=== PATIENT | male | born 1955 | race Caucasian/White ===

== ENCOUNTER → 2017-01-18 | Outpatient (CLI) | payer BC | LOC: RAD 13:49 | PROVIDERS: ATTEND Internal Medicine | DX: J44.9 Chronic obstructive pulmonary disease, unspecified (principal) | CPT/HCPCS: 71250 ==

== ENCOUNTER → 2017-04-23 | Outpatient (CLI) | payer BC ==
--- NOTE | 2017-04-23 12:10 | RADIOLOGY REPORT (SQ) ---
EXAM DESCRIPTION: MRI CERVICAL SPINE WITHOUT COMPLETED DATE/TIME: 04/23/2017 11:13 am REASON FOR STUDY: RADICULOPATHY,CERVICAL REGION M54.12 RADICULOPATHY, CERVICAL REGION M54.17 RADIC ULOPATHY, LUMBOSACRAL REGION COMPARISON: None. TECHNIQUE: Sagittal and Axial imaging includes T1, T2, STIR and gradient echo sequences. LIMITATIONS: None. FINDINGS: ALIGNMENT: Normal. VERTEBRAE: Intact. BONE MARROW: Normal. No marrow replacement or reactive changes. DISCS: Normal. No significant abnormal signal or loss of height. HARDWARE: None in the spine. CORD AND BASE OF BRAIN: Normal in size and signal intensity. SOFT TISSUES: No soft tissue masses. C1-C2: No significant spinal stenosis. C2-C3: No significant spinal stenosis or exit foraminal stenosis. C3-C4: Uncovertebral spurring and facet arthropathy on the left side resulting in severe left exit fo raminal stenosis. No significant spinal stenosis. C4-C5: Minimal posterior disc and osteophyte. Slightly asymmetric to the left side. Facet arthropat hy. No significant spinal stenosis or exit foraminal stenosis. C5-C6: Posterior disc and osteophyte, asymmetric to the right side. Uncovertebral spurring and facet arthropathy. No significant spinal stenosis. Moderate to severe left exit foraminal stenosis and s evere right exit foraminal stenosis. C6-C7: Minimal posterior disc and osteophyte. Uncovertebral spurring and facet arthropathy. No sign ificant spinal stenosis. Mild -moderate exit foraminal stenosis. C7-T1: No significant spinal stenosis or exit foraminal stenosis. UPPER THORACIC: Incompletely imaged. No significant spinal stenosis or exit foraminal stenosis. OTHER: No other significant finding. IMPRESSION: MULTILEVEL CHRONIC DEGENERATIVE CHANGES DESCRIBED ABOVE. EXIT FORAMINAL STENOSIS AT SEVERAL LEVELS. NO SIGNIFICANT SPINAL STENOSIS. TECHNICAL DOCUMENTATION: JOB ID: [id number]- All Rights Reserved
--- NOTE | 2017-04-23 12:17 | RADIOLOGY REPORT (SQ) ---
EXAM DESCRIPTION: MRI LUMBAR SPINE WITHOUT COMPLETED DATE/TIME: 04/23/2017 11:14 am REASON FOR STUDY: RADICULOPATHY,LUMBAR REGION M54.12 RADICULOPATHY, CERVICAL REGION M54.17 RADICUL OPATHY, LUMBOSACRAL REGION COMPARISON: None. TECHNIQUE: Sagittal and Axial imaging includes T1, T2, STIR and gradient echo sequences. Coronal T2/ HASTE imaging. LIMITATIONS: None. FINDINGS: VISUALIZED UPPER ABDOMEN: Limited evaluation. No acute or suspicious findings suggested. SEGMENTATION: No transitional anatomy. The lowest well-developed disc space is labeled L5-S1. ALIGNMENT: Anatomic. VERTEBRAE: The lumbar vertebrae are intact. There is mild anterior wedging of the T11 vertebral body . BONE MARROW: Normal. No marrow replacement or reactive changes. Incidental vertebral body hemangioma in L3. DISC SIGNAL: Decreased height and signal. POSTERIOR ELEMENTS: Generally intact. No pars defect evident. HARDWARE: None in the spine. CORD AND CONUS: Normal in size and signal intensity. Conus at the appropriate level. SOFT TISSUES: No aortic aneurysm seen. No bulky retroperitoneal adenopathy or mass. No paraspinal mas s or fluid. L1-L2: No significant spinal stenosis or exit foraminal stenosis. L2-L3: Minimal diffuse posterior annular bulge. Mild facet arthropathy. No significant spinal steno sis or exit foraminal stenosis. L3-L4: Mild diffuse posterior annular bulge. Moderate facet arthropathy. Mild spinal stenosis. No significant exit foraminal stenosis. L4-L5: Left paracentral disc bulge. Moderate -severe left lateral recess stenosis. There is mild-mo derate central canal stenosis. No significant exit foraminal stenosis. L5-S1: No significant spinal stenosis or exit foraminal stenosis. LOWER THORACIC: Incompletely imaged. No stenosis seen. SACRUM: Visualized upper sacrum intact. OTHER: No other significant findings. IMPRESSION: 1. MULTILEVEL DEGENERATIVE CHANGES DESCRIBED. MOST PROMINENT FINDING IS AT L4-L5 WITH LEFT PARACE NTRAL DISC BULGE RESULTING IN MODERATE TO SEVERE LEFT LATERAL RECESS STENOSIS. 2. MILD WEDGE DEFORMITY OF THE T11 VERTEBRAL BODY WHICH APPEARS OLD AND NOT ACUTE. TECHNICAL DOCUMENTATION: JOB ID: [id number] [employer]- All Rights Reserved
== END ==
LOC: RAD 09:23
PROVIDERS: ATTEND Pain Medicine Pain Medicine
DX: M54.12 Radiculopathy, cervical region (principal); M54.17 Radiculopathy, lumbosacral region
CPT/HCPCS: 72141; 72148

== ENCOUNTER → 2018-08-21 | Outpatient (CLI) | payer BC ==
--- NOTE | 2018-08-21 11:11 | RADIOLOGY REPORT (SQ) ---
EXAM DESCRIPTION: HIP RIGHT AP/LATERAL COMPLETED DATE/TIME: 08/21/2018 10:55 am REASON FOR STUDY: PAIN IN RIGHT HIP M25.551 PAIN IN RIGHT HIP COMPARISON: None. NUMBER OF VIEWS: Two views. TECHNIQUE: AP pelvis and additional frog-leg view of the right hip. LIMITATIONS: None. FINDINGS: MINERALIZATION: Normal. RIGHT HIP: No fracture or dislocation. Mild joint space narrowing. 2 cm loose body along the fisher sponge hooking ior aspect of the right hip joint. LEFT HIP: No fracture or dislocation. Mild left hip joint space narrowing. No intra-articular loose bodies. PUBIS AND ISCHIUM: No fracture. PELVIS: No fracture. SACRUM: No fracture or dislocation. No worrisome bone lesions. LOWER LUMBAR SPINE: Transitional lumbosacral segment with large transverse processes articulating wit h the upper sacrum SOFT TISSUES: No findings. OTHER: No other significant finding. IMPRESSION: No acute fracture. Bilateral hip joint osteoarthritis. Right hip loose body TECHNICAL DOCUMENTATION: JOB ID: [id number] [employer]- All Rights Reserved Reading location - IP/workstation name: [email or web address]
== END ==
LOC: OD 10:36
PROVIDERS: ATTEND Internal Medicine
DX: M25.551 Pain in right hip (principal); M16.0 Bilateral primary osteoarthritis of hip; M24.051 Loose body in right hip